=== PATIENT | male | born 1955 | race Caucasian/White ===

== ENCOUNTER → 2017-04-22 | Outpatient (CLI) | payer BC | LOC: BHSO 12:45 | DX: F33.1 Major depressive disorder, recurrent, moderate (principal) | CPT/HCPCS: 90791-AI ==

== ENCOUNTER → 2017-06-07 | Outpatient (CLI) | payer BC | LOC: BHSO 08:45 | DX: F33.1 Major depressive disorder, recurrent, moderate (principal) | CPT/HCPCS: G0463 ==

== ENCOUNTER → 2017-07-12 | Outpatient (CLI) | payer BC | LOC: BHSO 15:10 | DX: F33.41 Major depressive disorder, recurrent, in partial remission (principal) | CPT/HCPCS: G0463 ==

== ENCOUNTER → 2017-08-26 | Outpatient (CLI) | payer BC | LOC: BHSO 10:14 | DX: F33.1 Major depressive disorder, recurrent, moderate (principal) | CPT/HCPCS: G0463 ==

== ENCOUNTER → 2017-10-15 | Outpatient (CLI) | payer BC | LOC: BHSO 08:46 | DX: F33.41 Major depressive disorder, recurrent, in partial remission (principal) | CPT/HCPCS: G0463 ==

== ENCOUNTER → 2017-12-13 | Outpatient (CLI) | payer BC | LOC: BHSO 08:37 | DX: F41.1 Generalized anxiety disorder (principal) | CPT/HCPCS: G0463 ==

== ENCOUNTER → 2018-03-14 | Outpatient (CLI) | payer BC | LOC: BHSO 15:48 | DX: F33.0 Major depressive disorder, recurrent, mild (principal) | CPT/HCPCS: G0463 ==

== ENCOUNTER → 2018-06-13 | Outpatient (CLI) | payer BC ==
[~2018-06-13] MED LIST: ALEVE 220MG220 MG PO; CASODEX 50MG TA50 MG PO; CIPRO; COUMADIN; COUMADIN 77.5 MG/TAB PO; EFFEXOR; LEVOTHYROXINE PO; ROPINAROLE; SINGULAIR; TRELSTAR
== END ==
LOC: BHSO 15:34
DX: F41.1 Generalized anxiety disorder (principal)
CPT/HCPCS: G0463

== ENCOUNTER → 2018-09-12 | Outpatient (CLI) | payer BC | LOC: BHSO 16:09 | DX: F33.0 Major depressive disorder, recurrent, mild (principal) | CPT/HCPCS: G0463 ==

== ENCOUNTER → 2018-12-16 | Outpatient (CLI) | payer BC | LOC: BHSO 16:25 | DX: F41.1 Generalized anxiety disorder (principal) | CPT/HCPCS: G0463 ==

== ENCOUNTER → 2019-05-29 | Outpatient (CLI) | payer BC | LOC: BHSO 16:05 | DX: F33.8 Other recurrent depressive disorders (principal) | CPT/HCPCS: G0463 ==

== ENCOUNTER → 2019-12-03 | Outpatient (CLI) | payer BC | LOC: BHSO 16:14 | DX: F33.8 Other recurrent depressive disorders (principal) | CPT/HCPCS: G0463 ==

== ENCOUNTER → 2020-02-09 | Outpatient (CLI) | payer MEDICARE, BC | LOC: BHSO 15:26 | DX: F33.41 Major depressive disorder, recurrent, in partial remission (principal) | CPT/HCPCS: G0463 ==